=== PATIENT | male | born 1960 | race Caucasian/White ===

== ENCOUNTER 2018-10-23 13:40 | Outpatient (CLI) | payer BC ==
--- NOTE | 2018-10-23 15:49 | XRAY Report ---
Reason: PAIN IN RIGHT ANKLE Procedure Date: 10/23/2018 Accession Number: [id number] / [id number] Procedure: XRN - Ankle 3 View RT CPT Code: FULL RESULT: EXAM: RIGHT ANKLE RADIOGRAPHY EXAM DATE: 10/23/2018 01:52 PM. CLINICAL HISTORY: Pain in right ankle. COMPARISON: None. TECHNIQUE: 3 views. FINDINGS: Bones: No acute fracture appreciated. There is a somewhat flattened morphology to the talar dome. Joints: Mild osteophyte of the anterior tibia and minor osteophyte of the anterior and posterior talar dome. Atypical appearance to the subtalar joint with narrowing of the anterior and middle facets and nonvisualization/possible fusion of the posterior facet. Positive tibiotalar joint effusion. Soft Tissues: Normal. No soft tissue swelling. 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 Definitive diagnosis would require cross-sectional imaging. RADIA
== END 2018-10-23 13:41 | disposition home or self-care (01) ==
LOC: DI.N 13:40
PROVIDERS: ATTEND Family Medicine
DX: M19.071 Primary osteoarthritis, right ankle and foot (principal)

== ENCOUNTER 2018-11-05 14:31 | Outpatient (CLI) | payer BC ==
--- NOTE | 2018-11-06 08:43 | XRAY Report ---
Reason: PAIN IN RIGHT ANKLE AND JOINTS OF RT FOOT Procedure Date: 11/05/2018 Accession Number: [id number] / [id number] Procedure: XR - Foot 3 View RT CPT Code: FULL RESULT: EXAM: RIGHT FOOT RADIOGRAPHY EXAM DATE: 11/05/2018 02:37 PM. CLINICAL HISTORY: Pain in right ankle and joints of right foot. COMPARISON: FOOT 3 VIEW RT 11/05/2018 2:37 PM ANKLE 3 VIEW RT 11/05/2018 2:40 PM. TECHNIQUE: 3 views. FINDINGS: Bones: Normal. No fractures or bone lesions. Joints: Degenerative joint space narrowing with subchondral sclerosis and mild osteophytosis of the first MTP joint. Soft Tissues: Normal. No soft tissue swelling. IMPRESSION: Mild degenerative changes of the first MTP joint. No acute fracture or malalignment appreciated. RADIA
--- NOTE | 2018-11-06 08:49 | XRAY Report ---
Reason: PAIN IN RIGHT ANKLE AND JOINTS OF RT FOOT Procedure Date: 11/05/2018 Accession Number: [id number] / [id number] Procedure: XR - Ankle 3 View RT CPT Code: FULL RESULT: EXAM: RIGHT ANKLE RADIOGRAPHY EXAM DATE: 11/05/2018 02:40 PM. CLINICAL HISTORY: Pain in right ankle and joints of right foot. COMPARISON: ANKLE 3 VIEW RT 10/23/2018 1:57 PM. FOOT 3 VIEW RT 11/05/2018 2:37 PM. TECHNIQUE: 3 views. FINDINGS: Bones: No fractures appreciated. Stable mild flattening of the talar dome on the right lateral radiograph. Joints: Stable abnormal configuration to the subtalar joint with degenerative sclerosis in the middle facet and nonvisualization of the posterior facet, suspicious for talocalcaneal coalition. Mild anterior osteophytosis of the distal tibia. Soft Tissues: Normal. No soft tissue swelling. IMPRESSION: Stable abnormal configuration of the subtalar joint suspicious for talocalcaneal coalition. Definitive diagnosis would require cross-sectional imaging. RADIA
== END 2018-11-05 14:32 | disposition home or self-care (01) ==
LOC: DI 14:31
PROVIDERS: ATTEND Family Medicine
DX: M19.071 Primary osteoarthritis, right ankle and foot (principal)

== ENCOUNTER 2022-10-24 15:44 | Outpatient (CLI) | payer MEDICAID | END 2022-10-24 15:45 | disposition home or self-care (01) | LOC: LAB.N 15:44 | PROVIDERS: ATTEND Family Medicine | DX: Z12.5 Encounter for screening for malignant neoplasm of prostate (principal) | CPT/HCPCS: 36415; 84153 ==

== ENCOUNTER 2023-03-21 10:13 | Day surgery (SDC) | payer MEDICAID ==
[2023-03-21] MEDS ORDERED: LACTATED RINGERS 1,000 ML IV ONE ×2 (10:22→11:50)
--- NOTE | 2023-03-21 11:01 | ANESTHESIA ---
Pre-Anesthesia VS, & Labs - Diagnosis bloody stool - Procedure colonoscopy Vital Signs: Temp Pulse Resp BP Pulse Ox O2 Flow Rate 36.0 C L 64 20 149/95 H 96 0 03/21/23 10:15 03/21/23 10:15 03/21/23 10:15 03/21/23 10:15 03/21/23 10:15 03/21/23 10:15 Height: 5 ft 7 in Weight (kg): 79 kg Body Mass Index: 27.2 BMI Classification: Overweight - NPO >8 hours - Lab Results Lab results reviewed: Yes Home Medications and Allergies Home Medications: Ambulatory Orders Fluticasone Propionate 15.8 ml NS DAILY 03/20/23 Omeprazole 20 mg PO DAILY 03/20/23 Tamsulosin [Flomax] 0.4 mg PO DAILY 03/20/23 Fluticasone Propionate 15.8 ml NS DAILY 03/20/23 Omeprazole 20 mg PO DAILY 03/20/23 Tamsulosin [Flomax] 0.4 mg PO DAILY 03/20/23 Allergies/Adverse Reactions: Allergies Allergy/AdvReac Type Severity Reaction Status Date / Time No Known Drug Allergies Allergy Verified 03/21/23 10:32 Anes History & Medical History - Anesthetic History Anesthesia Complications: reports: No previous complications Family history of Anesthesia Complications: Denies Family history of Malignant Hyperthermia: Denies - Medical History Cardiovascular: reports: None Pulmonary: reports: None Gastrointestinal: reports: GERD Urinary: reports: Benign prostate hypertrophy Neuro: reports: None Musculoskeletal: reports: Osteoarthritis Endocrine/Autoimmune: reports: None Skin: reports: None Smoking Status: Never smoker - Surgical History General: reports: Cholecystectomy, Colonoscopy Exam General: Alert, Oriented x3, Cooperative Dental: WNL Mouth Openin Fingerbreadth Mallampati classification: II Thyromental Distance: 4-6 cm Respiratory: Lungs clear Cardiovascular: Regular rate Plan Anesthesia Type: General, MAC Consent for Procedure(s) Verified and Reviewed: Yes Code Status: Attempt Resuscitation ASA classification: 2-Mild systemic disease Is this case an emergency?: No
[2023-03-21] MEDS ORDERED: PROPOFOL 500 MG/50 ML 500 MG/50 ML VIAL ONE (11:10)
[2023-03-21 12:17] VITALS: BP 114/68; O2SAT 98
--- NOTE | 2023-03-21 13:36 | ANESTHESIA POST OP EVALUATION ---
Anesthesia Post Eval - Post Anesthesia Eval Vitals: Last Vital Signs Temp 36.0 C L 03/21/23 11:50 Pulse 59 L 03/21/23 12:11 Resp 14 03/21/23 12:11 BP 114/68 03/21/23 12:11 Pulse Ox 98 03/21/23 12:11 O2 Flow Rate 0 03/21/23 10:15 CV Function Including HR & BP: Stable Pain Control: Satisfactory Nausea & Vomiting: Negative Mental Status: Baseline Respiratory Status: Airway Patent Hydration Status: Satisfactory Anesthesia Complications: None
== END 2023-03-21 10:14 | disposition home or self-care (01) ==
LOC: SDS 10:13
PROVIDERS: ATTEND Surgery
PROC: 0DBF8ZX Excision of Right Large Intestine, Via Natural or Artificial Opening Endoscopic, Diagnostic (ICD-10-PCS; 2023-03-21)
PROC: 0DBG8ZX Excision of Left Large Intestine, Via Natural or Artificial Opening Endoscopic, Diagnostic (ICD-10-PCS; principal; 2023-03-21 11:15)
DX: K92.1 Melena (principal); K64.8 Other hemorrhoids
CPT/HCPCS: 45380; J7120

== ENCOUNTER 2023-05-06 08:00 | Outpatient (CLI) | payer MEDICAID ==
--- NOTE | 2023-05-06 18:43 | XRAY Report ---
PROCEDURE: Wrist 3 View RT INDICATIONS: RIGHT WRIST FRACTURE TECHNIQUE: 3 views of the wrist were acquired. COMPARISON: 04/29/2023 FINDINGS: Bones: Transverse fracture through the distal ulna is a comminuted with dorsal displacement Soft tissues: No suspicious soft tissue calcifications or masses. IMPRESSION: Displaced comminuted distal radial fracture, stable Reviewed by: Bertram Aaron MD on 05/06/2023 5:42 PM AKDT Approved by: Bertram Aaron MD on 05/06/2023 5:42 PM AKDT Station ID: [id number]
== END 2023-05-06 23:59 | disposition home or self-care (01) ==
LOC: DI.WOS 08:00
PROVIDERS: ATTEND Orthopaedic Surgery
DX: S52.501A Unspecified fracture of the lower end of right radius, initial encounter for closed fracture (principal)

== ENCOUNTER 2023-05-13 08:00 | Outpatient (CLI) | payer MEDICAID ==
--- NOTE | 2023-05-13 17:16 | XRAY Report ---
PROCEDURE: Wrist 3 View RT INDICATIONS: RIGHT WRIST FRACTURE TECHNIQUE: 3 views of the wrist were acquired. COMPARISON: 05/06/2023. FINDINGS: Bones: No significant interval change in the angulated, intra-articular fracture of the radial stylo id. Soft tissues: No suspicious soft tissue calcifications or masses. IMPRESSION: No interval healing. Reviewed by: Anders Myers on 05/13/2023 5:15 PM PDT Approved by: Anders Myers on 05/13/2023 5:15 PM PDT Station ID: [id number]
== END 2023-05-13 23:59 | disposition home or self-care (01) ==
LOC: DI.WOS 08:00
PROVIDERS: ATTEND Orthopaedic Surgery
DX: S52.571A Other intraarticular fracture of lower end of right radius, initial encounter for closed fracture (principal)

== ENCOUNTER 2023-05-15 11:03 | Day surgery (SDC) | payer MEDICAID ==
[2023-05-15] MEDS ORDERED: ceFAZolin 2 GM VIAL ONE (11:14)
[2023-05-15] MEDS ORDERED: ACETAMINOPHEN 500 MG TABLET PO ONE (11:14)
[2023-05-15] MEDS ORDERED: CELECOXIB 100 MG CAPSULE PO ONE (11:14)
[2023-05-15] MEDS ORDERED: LACTATED RINGERS 1,000 ML IV ONE ×2 (11:18→14:00)
[2023-05-15] MEDS ORDERED: PROPOFOL 200 MG/20 ML VIAL IVP ONE (11:51)
[2023-05-15] MEDS ORDERED: MIDAZOLAM 2 MG/2 ML VIAL ONE (11:51)
[2023-05-15] MEDS ORDERED: fentaNYL 100 MCG/2 ML VIAL ONE (11:51)
[2023-05-15] MEDS ORDERED: LIDOCAINE-PF 2% 10 ML AMP SUBQ ONE (11:52)
[2023-05-15] MEDS ORDERED: ROPIVACAINE 0.5% PF 20 ML VIAL ONE (11:52)
--- NOTE | 2023-05-15 12:12 | ANESTHESIA ---
Pre-Anesthesia VS, & Labs - Diagnosis displaced fracture right distal radius - Procedure closed reduction percutaneous pinning right distal radius Vital Signs: Temp Pulse Resp BP Pulse Ox O2 Flow Rate 36.3 C L 55 L 18 135/81 H 97 05/15/23 11:23 05/15/23 11:23 05/15/23 11:23 05/15/23 11:23 05/15/23 11:23 Height: 5 ft 7 in Weight (kg): 77.7 kg Body Mass Index: 26.8 BMI Classification: Overweight - NPO >8 hours Home Medications and Allergies Home Medications: Ambulatory Orders Acetaminophen [Tylenol] 650 mg PO Q6H PRN 05/13/23 Ibuprofen [Motrin] 600 mg PO Q6H PRN 05/13/23 oxyCODONE [Roxicodone] 5 mg PO Q6H PRN 05/13/23 Fluticasone Propionate 15.8 ml NS DAILY 03/20/23 Omeprazole 20 mg PO DAILY 03/20/23 Tamsulosin [Flomax] 0.4 mg PO DAILY 03/20/23 Acetaminophen [Tylenol] 650 mg PO Q6H PRN 05/13/23 Ibuprofen [Motrin] 600 mg PO Q6H PRN 05/13/23 oxyCODONE [Roxicodone] 5 mg PO Q6H PRN 05/13/23 Allergies/Adverse Reactions: Allergies Allergy/AdvReac Type Severity Reaction Status Date / Time No Known Drug Allergies Allergy Verified 05/06/23 15:15 Anes History & Medical History - Anesthetic History Anesthesia Complications: reports: No previous complications - Medical History Cardiovascular: reports: None Pulmonary: reports: None Gastrointestinal: reports: GERD Urinary: reports: Benign prostate hypertrophy Neuro: reports: None Musculoskeletal: reports: Other Endocrine/Autoimmune: reports: None Skin: reports: None Smoking Status: Never smoker - Surgical History General: reports: Cholecystectomy, Colonoscopy Orthopedic: reports: Spine surgery (L1 with hardware) Exam General: Alert, Oriented x3 Dental: WNL Neck Mobility: Normal Mallampati classification: II Thyromental Distance: greater than 6 cm Plan Anesthesia Type: Supraclavicular Block Consent for Procedure(s) Verified and Reviewed: Yes Code Status: Attempt Resuscitation ASA classification: 2-Mild systemic disease Is this case an emergency?: No
[2023-05-15] MEDS ORDERED: METOCLOPRAMIDE 10 MG/2 ML VIAL IVP PRN (12:21)
[2023-05-15] MEDS ORDERED: ONDANSETRON 4 MG/2 ML VIAL IVP PRN ×2 (12:21→14:01)
[2023-05-15] MEDS ORDERED: MORPHINE 2 MG/ML CARPUJECT IVP PRN (12:21)
[2023-05-15] MEDS ORDERED: HYDROmorphone 0.5 MG/0.5 ML SYRINGE IVP PRN (12:21)
[2023-05-15] MEDS ORDERED: NALOXONE 0.4 MG/ML VIAL IVP PRN (12:21)
[2023-05-15] MEDS ORDERED: fentaNYL 100 MCG/2 ML VIAL IVP PRN (12:21)
[2023-05-15] MEDS ORDERED: ATROPINE ABBOJECT 1 MG/10 ML SYRINGE IVP PRN (12:21)
[2023-05-15] MEDS ORDERED: ePHEDrine 50 MG/ML VIAL IVP PRN (12:21)
[2023-05-15] MEDS ORDERED: LACTATED RINGERS 1,000 ML IV SCH (13:00)
[2023-05-15] MEDS ORDERED: DEXAMETHASONE 4 MG/ML VIAL ONE (13:46)
--- NOTE | 2023-05-15 13:54 | OPERATIVE REPORT ---
Operative Report - General Procedure Date: 05/15/23 Planned Procedure: Closed reduction, percutaneous pinning right distal radius Pre-Op Diagnosis: Displaced articular distal radius fracture with comminution right wrist Procedure Performed: Closed reduction percutaneous pin fixation right distal radius Post Op Diagnosis: Same as preoperative diagnosis - Procedure Note Primary Surgeon: Arjun Grissom MD Secondary Surgeon: Josette Ceja PAC Anesthesia Provider: Berna Jorgensen CRNA Anesthesia Technique: Regional block Estimated Blood Loss (mL): 1 Indications: This is a 62-year-old right-handed man with history of injury to the right distal forearm now approximately 2 weeks. He was scheduled to have this procedure over a week ago but decided that he had too much discomfort to his entire body. When he originally canceled his surgery, it was alleged that he had the flu or was sick. He apparently was not having the flu or any parent was not sick. At any rate there has been a delay in bringing him to the operating room. His exam showed isolated swelling, decreased motion to wrist, tenderness right wrist, skin intact, neurovascular intact. His x-rays suggest the displaced articular fracture right distal radius, comminution, shortening and angulation. An informed consent was obtained in our office. Patient was agreement to the procedure. Findings: There is a displaced articular distal radius fracture right wrist with shortening and angulation. Complications: None - Other Other Information/Narrative: The patient was brought to the operating room and placed in the supine position. He had received a supraclavicular block. The right upper extremity was prepped and draped in a sterile manner in the usual fashion. A timeout procedure was performed by the entire operating room team and all were in agreement. 5 finger, fingertrap traction with traction bow was utilized with the distal forearm over a sterile bump. Manual traction and direct manipulation at the fracture site was performed with improved alignment on biplanar imaging. The articular surface seem to align, most of the shortening and angulation was significantly improved. Multiple 0.062 K wires were inserted beginning at the bare area of the radial styloid. 2 K wires were inserted using C arm image intensifier in biplanar imaging. An additional K wire was placed across the radius, paralleling the joint line to help secure the ulnar fracture fragment at the articular surface. An additional K wire was inserted from the ulnar corner of the distal radius p roximally. The final K wire was inserted from the radius more proximally and angled into the ulnar corner of the distal radius. There were 5 K wires inserted. Most of the K wires had bicortical fixation. The K wires were cut external to the skin and covered with sterile balls. Pin gauze was placed beneath the pins in a short leg fiberglass volar splint. He received 2 g of Ancef and tolerated the procedure well.A physician information services assistant was medically necessary to help with prepping and draping, positioning, protection of vital structures, assistance during the procedure including wound closure, dressing and/or splinting.
[2023-05-15] MEDS ORDERED: oxyCODONE 5 MG TABLET PO PRN (14:01)
[2023-05-15] MEDS ORDERED: ACETAMINOPHEN 500 MG TABLET PO PRN (14:01)
[2023-05-15 14:28] VITALS: O2SAT 100
--- NOTE | 2023-05-15 14:28 | ANESTHESIA POST OP EVALUATION ---
Anesthesia Post Eval - Post Anesthesia Eval Vitals: Last Vital Signs Temp 63.2 C H 05/15/23 14:00 Pulse 47 L 05/15/23 14:15 Resp 12 05/15/23 14:15 BP 127/83 H 05/15/23 14:15 Pulse Ox 100 05/15/23 14:15 O2 Flow Rate CV Function Including HR & BP: Stable Pain Control: Satisfactory Nausea & Vomiting: Negative Mental Status: Baseline Respiratory Status: Airway Patent Hydration Status: Satisfactory Anesthesia Complications: None
[2023-05-15 14:56] VITALS: BP 151/91
[2023-05-15] MEDS ORDERED: SCOPOLAMINE PATCH TOP ONE (15:25)
--- NOTE | 2023-05-15 16:19 | XRAY Report ---
PROCEDURE: OR C-Arm Procedure INDICATIONS: closed reduction, distal radius FLUORO TIME: 0.6 MIN TECHNIQUE: 4 intraoperative fluoroscopic images COMPARISON: Right wrist radiograph on May 13, 2023 FINDINGS AND IMPRESSION: 4 intraoperative fluoroscopic images demonstrate multiple Tamera wires transfixing the comminuted distal radius fracture. Please see operative report for details. Cumulative dose: 0.7 mGy Reviewed by: Alton Pal MD on 05/15/2023 4:18 PM PDT Approved by: Alton Pal MD on 05/15/2023 4:18 PM PDT Station ID: [id number]
[2023-05-16] MEDS ORDERED: SCOPOLAMINE PATCH TOP SCH (15:20)
== END 2023-05-15 11:04 | disposition home or self-care (01) ==
LOC: SDS 11:03
PROVIDERS: ATTEND Orthopaedic Surgery
DX: S52.571A Other intraarticular fracture of lower end of right radius, initial encounter for closed fracture (principal)
CPT/HCPCS: 25606; A9270; C1713; J2795; J3490; J7120

== ENCOUNTER 2023-05-23 08:00 | Outpatient (CLI) | payer MEDICAID ==
--- NOTE | 2023-05-23 13:01 | XRAY Report ---
PROCEDURE: Wrist 3 View RT INDICATIONS: RIGHT WRIST FRACTURE TECHNIQUE: 3 views of the wrist were acquired. COMPARISON: X-ray wrist 05/23/2023, 05/13/2023 FINDINGS: Bones: Pin fixation is present overlying the comminuted intra-articular distal radial fracture. Ther e is relatively good anatomic alignment although slight dorsal displacement of the distal fragment.. No suspicious bony lesions. Soft tissues: No suspicious soft tissue calcifications or masses. IMPRESSION: Distal radial pin fixation as above. Reviewed by: Sun Blackwell MD on 05/23/2023 1:00 PM PDT Approved by: Sun Blackwell MD on 05/23/2023 1:00 PM PDT Station ID: [id number]
== END 2023-05-23 23:59 | disposition home or self-care (01) ==
LOC: DI.WOS 08:00
PROVIDERS: ATTEND Physician Assistant Surgical
DX: S52.571A Other intraarticular fracture of lower end of right radius, initial encounter for closed fracture (principal)

== ENCOUNTER 2023-06-16 08:00 | Outpatient (CLI) | payer MEDICAID ==
--- NOTE | 2023-06-16 16:58 | XRAY Report ---
PROCEDURE: Wrist 3 View RT INDICATIONS: RIGHT WRIST FRACTURE TECHNIQUE: 3 views of the wrist were acquired. COMPARISON: 05/23/2023, 05/13/2023, 05/06/2023 and 04/29/2023. FINDINGS: Bones: There is interval removal of previously noted fixation pins in distal radius. Comminuted, imp acted and slightly displaced distal radial fracture is again seen. No new fracture or dislocation. Al ignment of wrist is not significantly changed from previous study. No suspicious bony lesions. Soft tissues: No suspicious soft tissue calcifications or masses. IMPRESSION: Interval removal of previously noted external fixation pins in distal radius. Comminuted, impacted an d slightly displaced distal radial fracture not significantly changed in alignment compared to previo us study. No new fracture or dislocation. Reviewed by: Josh Brody MD on 06/16/2023 4:57 PM PST Approved by: Josh Brody MD on 06/16/2023 4:57 PM PST Station ID: [id number]
== END 2023-06-16 23:59 | disposition home or self-care (01) ==
LOC: DI.WOS 08:00
PROVIDERS: ATTEND Orthopaedic Surgery
DX: S52.571D Other intraarticular fracture of lower end of right radius, subsequent encounter for closed fracture with routine healing (principal)

== ENCOUNTER 2023-11-17 15:36 | Outpatient (CLI) | payer MEDICAID ==
--- NOTE | 2023-11-17 20:08 | XRAY Report ---
PROCEDURE: Shoulder 2+V LT INDICATIONS: SHOULDER IMPINGEMENT SYNDROME, LEFT TECHNIQUE: 3 views of the shoulder were acquired. COMPARISON: None. FINDINGS: Bones: No fractures or dislocations. No suspicious bony lesions. AC joint hypertrophy with a modera te downward going component. Mild glenohumeral joint degenerative change. Visualized ribs appear inta ct. Soft tissues: No suspicious soft tissue calcifications. The visualized lungs are within normal limi ts. IMPRESSION: No acute bony abnormality. Degenerative arthritis. Reviewed by: Delfino Smith MD on 11/17/2023 8:07 PM PDT Approved by: Delfino Smith MD on 11/17/2023 8:07 PM PDT Station ID: [id number]
== END 2023-11-17 15:37 | disposition home or self-care (01) ==
LOC: DI.N 15:36
PROVIDERS: ATTEND Internal Medicine
DX: M75.42 Impingement syndrome of left shoulder (principal); M19.012 Primary osteoarthritis, left shoulder

== ENCOUNTER 2024-04-14 08:00 | Outpatient (CLI) | payer MEDICAID ==
[2024-04-14 18:02] LABS: BASOPHILS % (AUTO) 0.5 %; EOSINOPHILS # (AUTO) 0.1 10^3/uL (0.0-0.7); EOSINOPHILS % (AUTO) 1.1 %; HCT - HEMATOCRIT 45.1 % (42.0-52.0); HGB - HEMOGLOBIN 15.2 g/dL (14.0-18.0); LYMPHOCYTES # (AUTO) 1.4 10^3/uL (1.5-3.5); LYMPHOCYTES % (AUTO) 25.2 %; MEAN CORPUSCULAR HEMOGLOBIN 30.4 pg (27.0-31.0); MEAN CORPUSCULAR HGB CONC 33.7 g/dL (32.0-36.0); MEAN CORPUSCULAR VOLUME 90.2 fL (80.0-94.0); MEAN PLATELET VOLUME 10.7 fL (7.4-11.4); MONOCYTES # (AUTO) 0.4 10^3/uL (0.0-1.0); MONOCYTES % (AUTO) 7.4 %; NEUTROPHILS # (AUTO) 3.7 10^3/uL (1.5-6.6); NEUTROPHILS % (AUTO) 64.6 %; PLT - PLATELET COUNT 243 10^3/uL (130-450); RED CELL DISTRIBUTION WIDTH 12.5 % (12.0-15.0); WHITE BLOOD COUNT 5.7 x10^3/uL (4.8-10.8)
[2024-04-14 18:24] LABS: ALBUMIN 4.3 g/dL (3.2-5.5); ALBUMIN/GLOBULIN RATIO 1.7 (1.0-2.2); ALKALINE PHOSPHATASE 59 IU/L (42-121); ALT ALANINE AMINOTRANSFERASE 12 IU/L (10-60); AST ASPARTATE AMINOTRANSFERASE 12 IU/L (10-42); BILIRUBIN,TOTAL 0.9 mg/dL (0.2-1.0); BUN - BLOOD UREA NITROGEN 14 mg/dL (6-20); CALCIUM 9.2 mg/dL (8.5-10.3); CARBON DIOXIDE - CO2 25 mmol/L (21-32); CHLORIDE 110 mmol/L (101-111); CHOL/HDL RATIO 5.5 (<5.0); CHOLESTEROL 149 mg/dL; CREATININE 0.9 mg/dL (0.6-1.3); CRP - C-REACTIVE PROTEIN < 0.5 mg/dL (<0.5); GFR - MDRD 85 (>89); GLUCOSE 100 mg/dL (74-104); HDL CHOLESTEROL 27 mg/dL; LDL CHOLESTEROL,CALCULATED 57 mg/dL; LDL/HDL RATIO 2.1 (<3.6); POTASSIUM 4.2 mmol/L (3.5-4.5); SODIUM 140 mmol/L (135-145); TOTAL PROTEIN 6.8 g/dL (6.4-8.9); TRIGLYCERIDES 325 mg/dL; VLDL CHOLESTEROL 65 mg/dL
[2024-04-14 18:32] LABS: THYROID STIMULATING HORMONE 1.63 uIU/mL (0.34-5.60)
== END 2024-04-14 23:59 | disposition home or self-care (01) ==
LOC: LAB.N 08:00
PROVIDERS: ATTEND Nurse Practitioner
DX: R53.83 Other fatigue (principal); Z13.220 Encounter for screening for lipoid disorders; N40.1 Benign prostatic hyperplasia with lower urinary tract symptoms; N13.8 Other obstructive and reflux uropathy
CPT/HCPCS: 36415; 80053; 80061; 83721; 84153; 84443; 85025; 85651; 86140